=== PATIENT | female | born 1950 | race Caucasian/White ===

== ENCOUNTER 2017-11-18 01:53 | Emergency (ER) | payer MEDICARE, BC, SELFPAY ==
[2017-11-18 01:55] VITALS: BP 168/78; PULSE 83; RESP 16; TEMP 36.8; O2SAT 99; BMI 35.8
[2017-11-18] MEDS: HYDROmorphone 1 MG/ML Syringe IV (02:34)
--- NOTE | 2017-11-18 03:39 | ED.DCSUM_ITS ---
- ER Visit Summary Date of Service: 11/18/17 Chief Complaint: Cat bite History of Present Illness: The patient is a [address] Vila and Dr. Rausch. She reports that yesterday she was bit on the left wrist by her indoor cat that has had all of his shots. She reports she has a throbbing pain is 10 out of 10 at worst and 9 out of 10 currently. Is worsened by movement and relieved by rest. She denies any paresthesias distally. Physical Examination: Vitals: Stable. Afebrile. General: Well-nourished and well-developed. Head: Normocephalic atraumatic. Neck: Supple, no lymphadenopathy. No JVD. Nontender. Cardiovascular: Regular rate and rhythm. No murmurs. Respiratory: No respiratory distress. Clear to auscultation bilaterally. Abdominal: Soft, nontender, nondistended, normal bowel sounds. No guarding, rebound, or peritoneal signs. Back: Nontender. Extremities: Soft tissue swelling to the back of her right wrist with puncture wounds in the center of it. There is minimal erythema. There is no lymphangitic spread. She is neurovascularly intact distal to this. Skin: Normal color, no rash. Neurologic: Alert and oriented ?3. Cranial nerves II through XII are intact. Normal strength and sensation. Psych: Normal affect. Emergency Department Course and Treatment: Patient had an IV placed. She was given Dilaudid and Unasyn IV. She is resting comfortably. Treatment Plan: Patient will be discharged with [place], Augmentin, and Bactroban ointment. Instructed follow-up Dr. Rausch in 2 days for a wound check. Return to the emergency department for any worsening symptoms. Disposition: To home in improved and stable condition. Impression: 1. Cat bite left wrist. This note was generated with [employer] dictation software. It may contain incorrect words, spelling, and punctuation that were not noted in review of the chart prior to signing ED Disposition - Plan for ED Patient: Disposition: Home or Assisted Living Chief Complaint: Bite Instructions: ED Bite Cat Prescriptions: Hydrocodone Bitart/Apap 5-325 [[place] 5/325] 1 - 2 tablet PO Q4H PRN PRN 5 Days # 20 tablet PRN Reason: Pain Amox/Clavulanate Tablet [Augmentin Tablet] 875 mg PO Q12H #20 tablet Mupirocin [Bactroban] 1 applic TOPICAL TID #1 tube Referrals: Gustavo Rausch MD [STAFF PHYSICIAN] - 2 Days for wound check
[2017-11-18] MEDS: HYDROcodone Bitartrate/Apap 5/325 Tablet PO (03:47)
[2017-11-18 03:48] VITALS: BP 135/76; PULSE 66; RESP 17; O2SAT 94
== END 2017-11-18 03:54 | disposition home or self-care (01) ==
PROVIDERS: Emergency Provider Emergency Medicine; Family Provider Internal Medicine; PCP Internal Medicine
DX: S60.872A Other superficial bite of left wrist, initial encounter (principal); W55.01XA Bitten by cat, initial encounter; Y93.9 Activity, unspecified; Y92.009 Unspecified place in unspecified non-institutional (private) residence as the place of occurrence of the external cause; I10 Essential (primary) hypertension; K21.9 Gastro-esophageal reflux disease without esophagitis; Z86.14 Personal history of Methicillin resistant Staphylococcus aureus infection; Z79.82 Long term (current) use of aspirin; Z79.899 Other long term (current) drug therapy
CPT/HCPCS: 96365; 96375; 99284; J7050; J0295

== ENCOUNTER 2023-01-15 11:18 | Inpatient (IN) | payer MEDICARE, BC, SELFPAY ==
[2023-01-15] VITALS (8 sets, daily range): BP systolic 136–160; BP diastolic 59–79; PULSE 59–63; RESP 14–18; TEMP 36.1–36.8; O2SAT 96–97; BMI 38.7; BMI 38.5
--- NOTE | 2023-01-15 11:29 | EKG12_ITS ---
Test Reason : WEAKNESS Blood Pressure : / mmHG Vent. Rate : 061 BPM Atrial Rate : 061 BPM P-R Int : 176 ms QRS Dur : 094 ms QT Int : 440 ms P-R-T Axes : 078 024 037 degrees QTc Int : 442 ms Normal sinus rhythm Normal ECG Confirmed by HARESH EGAN, KARON ([id number]), science editor MYNOR SCALES ([id number]) on 01/19/2023 2:27:21 PM Referred By: Confirmed By:AMY HUTSON MD
--- NOTE | 2023-01-15 11:30 | EX.ED.DYSGE1 ---
HPI <SHAWNA Santoyo - Last Filed: 01/15/23 13:32> History of Present Illness Chief Complaint: Weakness Narrative Narrative: Patient is a 72-year-old female with history of chronic kidney disease, rheumatoid arthritis, hypertension, diabetes, history of osteomyelitis presents to the emergency department with 1 week of generalized cough, fatigue, decreased appetite. Patient did see her PCP twice for this, 1 week ago, the patient was placed on Robitussin with codeine as well as cephalexin. Patient was seen yesterday, secondary to not getting better, patient then was placed on doxycycline, she is only been on 2 days of this. Patient today has been feeling more unsteady on her feet, she feels generally dehydrated, generally not well. She denies any fevers or chills. She did take a COVID-19 test that was negative. PFSH <SHAWNA Santoyo - Last Filed: 01/15/23 13:32> [facility] [place] Medical History (Updated 01/15/23 @ 14:58 by Caridad Villalobos) Diabetes FH: total knee replacement Hypertension Kidney failure Neuropathy Rheumatoid arthritis Home Medications aspirin 81 mg chewable tablet 81 mg PO DAILY heart 11/18/17 [History Last Taken 01/15/23] atenolol 25 mg tablet 25 mg PO DAILY blood pressure 11/18/17 [History Last Taken 01/15/23] hydrochlorothiazide 25 mg tablet 25 mg PO DAILY blood pressure 11/18/17 [History Last Taken 01/15/23] pantoprazole 20 mg tablet,delayed release 40 mg PO BID stomach 11/18/17 [History Last Taken 01/15/23] potassium chloride 10 mEq capsule,extended release 10 meq PO DAILY supplement 11/18/17 [History Last Taken 01/15/23] pregabalin 150 mg capsule (Lyrica) 150 mg PO BID neuropathy 11/18/17 [History Last Taken 01/15/23] spironolactone 25 mg tablet 25 mg PO DAILY water pill 11/18/17 [History Last Taken 01/15/23] albuterol sulfate 90 mcg/actuation aerosol inhaler 2 puff inhalation Q4H wheezing 01/15/23 [History Last Taken 01/15/23] cholecalciferol (vitamin D3) 25 mcg (1,000 unit) capsule 25 mcg PO DAILY supplement 01/15/23 [History Last Taken 01/15/23] codeine 10 mg-guaifenesin 100 mg/5 mL oral liquid 5 ml PO Q6H PRN Cough 01/15/23 [History Last Taken Unknown] cyanocobalamin (vitamin B-12) 1,000 mcg/mL injection syringe 1,000 mcg supplement 01/15/23 [History Last Taken 01/15/23] doxycycline hyclate 100 mg tablet 100 mg PO BID antibiotic 01/15/23 [History Last Taken 01/15/23] fluticasone propionate 50 mcg/actuation nasal spray,suspension (Flonase Allergy Relief) 2 spray intranasal DAILY allergies 01/15/23 [History Last Taken 01/15/23] guaifenesin 1,200 mg tablet, extended release 12 hr (Mucinex) 1,200 mg PO BID mucous 01/15/23 [History Last Taken 01/15/23] hydroxychloroquine 200 mg tablet 300 mg PO DAILY arthritis 01/15/23 [History Last Taken 01/15/23] infliximab 100 mg intravenous solution 100 mg IV Rheumatoid arthritis 01/15/23 [History Last Taken Unknown] metformin 500 mg tablet 500 mg PO BID diabetes 01/15/23 [History Last Taken 01/15/23] prednisone 10 mg tablet 40 mg PO DAILY steriod 01/15/23 [History Last Taken 01/14/23] Allergy/AdvReac Type Severity Reaction Status Date / Time clindamycin Allergy Rash Verified 01/15/23 11:19 Sulfa (Sulfonamide Allergy Hives Verified 01/15/23 11:19 Antibiotics) Surgical History (Updated 01/15/23 @ 14:58 by Caridad Villalobos) History of neck surgery Social History (Updated 01/15/23 @ 14:58 by Caridad Villalobos) household members: spouse Smoking Status: Never smoker ROS <SHAWNA Santoyo - Last Filed: 01/15/23 13:32> [facility] ED ROS Narrative Constitutional: Negative for fever, chills, weight loss. Eyes: Negative for vision loss, vision change, double vision ENT: Negative for any sore throat, ear pain, congestion Cardiovascular: Negative for any chest pain, tightness, palpitations Respiratory: Negative for any hemoptysis, dyspnea on exertion, orthopnea. Positive for cough, sputum production, dyspnea Gastrointestinal: Negative for any abdominal pain, nausea, vomiting, diarrhea, constipation, blood in stool, blood in vomit : Negative for any urinary frequency, dysuria, retention, blood in urine Muscle skeletal: Negative for any muscle joint pain, stiffness, arthralgias, neck pain, back pain. Positive generalized body aches Neurological: Negative for any headache, syncope, numbness or tingling, dizziness Skin: Negative for any rashes, lumps, itching, abrasions, lacerations Psychiatric: Negative for any depression, anxiety, stress, suicidal ideation, homicidal ideation Hematologic: Negative for any easy bruising, excessive bruising, easy bleeding Allergies: Negative for any eczema, hives, rash EXAM <SHAWNA Santoyo - Last Filed: 01/15/23 13:32> Physical Exam Narrative Exam Narrative: Vital signs reviewed. Vital signs stable, patient appears generally well patient is acting appropriate. HEET: Head normocephalic atraumatic, TMs clear bilaterally. Posterior pharynx is clear, dry mucous membranes. Nares clear bilaterally. Neck: Supple with no lymphadenopathy or tenderness. No signs of meningismus, negative jolt sign. Cardiac: Regular rate and rhythm no murmurs gallops or rubs, equal peripheral pulses bilaterally. Respiratory: Lungs clear to auscultation bilaterally. No chest tenderness. Abdomen: Soft, nontender, nondistended. No abdominal bruit or pulsatile masses. No hepatosplenomegaly Extremities: No peripheral edema, no signs of gross trauma or deformity. Active full range of motion of all extremities. Neuro: Cranial nerves II through XII intact, no focal neurological deficits. Skin: Clean dry and intact with no rash, purpura, petechiae, vesicles or pustules. Backs/flank: No CVA tenderness, no midline spinal tenderness, no deformity. Psych: Normal mood and affect. No SI, HI or acute psychosis. Const Vital Signs: 01/15/23 11:19 01/15/23 11:48 01/15/23 13:40 Temperature 97 F L 97.8 F Temperature Source Temporal Oral Pulse Rate 62 63 Respiratory Rate 14 16 Respiratory Effort Normal Respiratory Pattern Normal Blood Pressure 136/60 H 160/62 H Blood Pressure Mean 85 94 Pulse Ox 96 97 Oxygen Delivery Method Room Air Room Air Positive well nourished and well developed General Appearance ED: well developed <Dr. Gustavo Cantu MD - Last Filed: 01/15/23 16:59> Physical Exam Const Vital Signs: 01/15/23 11:19 01/15/23 11:48 01/15/23 13:40 Temperature 97 F L 97.8 F Temperature Source Temporal Oral Pulse Rate 62 63 Respiratory Rate 14 16 Respiratory Effort Normal Respiratory Pattern Normal Blood Pressure 136/60 H 160/62 H Blood Pressure Mean 85 94 Pulse Ox 96 97 Oxygen Delivery Method Room Air Room Air [facility] <SHAWNA Santoyo - Last Filed: 01/15/23 13:32> MDM Lab Data Labs: Laboratory Results - last 24 hr 01/15/23 01/15/23 01/15/23 11:35 11:35 11:35 WBC 7.1 RBC 4.32 Hgb 12.0 Hct 34.0 L MCV 78.7 L MCH 27.8 MCHC 35.3 RDW Std Deviation 37.1 RDW Coeff of Kelsy 13.1 Plt Count 291 MPV 9.8 Immature Gran % (Auto) 0.600 Neut % (Auto) 58.6 Lymph % (Auto) 27.2 Armstrong % (Auto) 12.9 H Eos % (Auto) 0.6 Baso % (Auto) 0.1 Absolute Neuts (auto) 4.2 Absolute Lymphs (auto) 1.94 Nucleated RBC % 0 Sodium 115 L* Potassium 3.5 Chloride 76 L Carbon Dioxide 26.0 Anion Gap 13 BUN 19 H Creatinine 1.51 H Estim Creat Clear Calc 31.06 Est GFR (MDRD) Af Amer 43 L Est GFR (MDRD) Non-Af 36 L BUN/Creatinine Ratio 12.6 Glucose 101 Calcium 9.5 B-Natriuretic Peptide 43.5 Radiography Diagnostic Testing: Clinical Impression(s) from Imaging Studies Chest X-Ray 01/15/23 11:55 IMPRESSION: No acute abnormality is seen. Electronically Signed: Lino Gonzales MD at 12:32 EDT , EKG Normal sinus rhythm: Attestation: I personally reviewed and interpreted this EKG as follows: Interpretation: Sinus Rhythm Comments: Sinus rhythm, rate of 61 bpm, PA interval 176 ms, QRS duration 94 ms, no acute ST elevation, no acute infarct noted Treatment and Re-Evaluation :: All radiologic examinations were read, reviewed by the emergency department attending. From these reads, a plan of care will be put in place. Patient appears in no respiratory distress, patient's vital signs are stable. Patient presents to the emergency department for 1 week of generalized upper respiratory tract infectious illness, patient is having difficulty eating and drinking, patient states over the last 2 days she has been more weak, very unsteady on her feet. Patient did receive a two-view chest x-ray, this showed no acute process, no evidence of any pneumonia. Patient's laboratory values showed a normal CBC however patient's chemistries showed hyponatremia with a sodium of 115. This is secondary to the patient not eating or drinking, this also would explain the patient's difficulty ambulating, excessive weakness. Patient denies any seizure-like activity. Patient's creatinine was 1.5, this is slightly elevated. Patient was given 1 L of normal saline, and a second liter at 150 an hour. Secondary to his hyponatremia, urinalysis, urine osmolality was ordered. The patient will need to be admitted to the hospital. I spoke with the hospitalist, she will be admitted to PCU, full admission. Patient and the patient's who is also physician was made aware, are in agreement, and all questions answered. At this time there is no evidence suspect any pneumonia, septicemia, anemia. <Dr. Gustavo Cantu MD - Last Filed: 01/15/23 16:59> [facility] Narrative Medical decision making narrative: Patient's blood work shows relatively normal CBC. However, her electrolytes showed elevated creatinine and significantly decreased sodium at 115. Her BNP was normal at 435. With her generalized weakness, ongoing symptoms, and very low sodium she will need to come in the hospital and the case is discussed with hospitalist. Lab Data Attestation: I reviewed the patient's lab results. Labs: Laboratory Results - last 24 hr 01/15/23 01/15/23 01/15/23 11:35 11:35 11:35 WBC 7.1 RBC 4.32 Hgb 12.0 Hct 34.0 L MCV 78.7 L MCH 27.8 MCHC 35.3 RDW Std Deviation 37.1 RDW Coeff of Kelsy 13.1 Plt Count 291 MPV 9.8 Immature Gran % (Auto) 0.600 Neut % (Auto) 58.6 Lymph % (Auto) 27.2 Armstrong % (Auto) 12.9 H Eos % (Auto) 0.6 Baso % (Auto) 0.1 Absolute Neuts (auto) 4.2 Absolute Lymphs (auto) 1.94 Nucleated RBC % 0 Sodium 115 L* Potassium 3.5 Chloride 76 L Carbon Dioxide 26.0 Anion Gap 13 BUN 19 H Creatinine 1.51 H Estim Creat Clear Calc 31.06 Est GFR (MDRD) Af Amer 43 L Est GFR (MDRD) Non-Af 36 L BUN/Creatinine Ratio 12.6 Glucose 101 Calcium 9.5 B-Natriuretic Peptide 43.5 Radiography Diagnostic Testing: Clinical Impression(s) from Imaging Studies Chest X-Ray 01/15/23 11:55 IMPRESSION: No acute abnormality is seen. Electronically Signed: Lino Gonzales MD at 12:32 EDT , Management Discussion w/another healthcare provider: Hospitalist Treatment and Re-Evaluation Comments:: I have personally performed a face to face assessment of the patient and have reviewed the JENNIFER Note. I performed a substantive portion of the visit including all aspects of the following. My encinas findings include: History: Patient started with what she describes as a viral type syndrome a week ago. She felt achy. She had a low-grade fever in the mid 100s. She had coughing and some wheezing. She has no history of lung disease or smoking. She saw her physician was placed on Keflex and Medrol Dosepak and an inhaler. She states she is still coughing but not bringing up sputum. She is also complaining that her appetite has just been extremely low this week. She is trying to force fluids in. She is not actually nauseated but she has no interest in food or drink. She is concerned about dehydration because she has a history of some kidney dysfunction related to antibiotic treatment many years ago. She was now just switched to prednisone. Wheezing is better. Not having chest pain. No abdominal pain. No diarrhea. Exam: Patient awake alert no acute distress. Mildly dry mucous membranes. Her lungs sound totally clear to me at this time. And saturations are normal at 96% on room air. Heart rate is slow at 60. But of note she is on a beta-rik which might keep her heart rate low even if she is dehydrated. Abdomen is benign. No peripheral edema. Medical Decision Making: Patient will have blood work done along with some billable viral studies and chest x-ray. Discharge Plan Dx/Rx/DC Orders Clinical Impression: Acute hyponatremia, URI (upper respiratory infection), Acute dehydration, Chronic renal insufficiency Disposition Disposition: Acute Care Hospital [facility] Discharge Date/Time: 01/15/23 14:24
[2023-01-15] MEDS: 0.9% Normal Saline 1,000 ML 999 ML IV (11:44)
[2023-01-15 11:50] LABS: Absolute Lymphocyte Count 1.94 X10^3/uL (0.83-4.51); Absolute Neutrophil Count 4.2 X10^3/uL (2.0-7.7); Basophil# 0.01 X10^3/uL; Basophil% 0.1 % (0-1); Eosinophil# 0.04 X10^3/uL; Eosinophils% 0.6 % (0-5); Lymphocyte # 1.94 X10^3/ul (0.83-4.51); Lymphocyte % 27.2 % (19-41); Mean Corp Hgb Conc 35.3 g/dL (32-36); Mean Corpuscular Hgb 27.8 pg (27.0-32.0); Mean Corpuscular Volume 78.7 fL (81-99); Mean Platelet Vol. 9.8 fl (6.2-12.0); Monocyte# 0.92 X10^3/uL; Monocyte% 12.9 % (0-10); NRBC Flagged by Analyzer 0 % (0-5); Neutrophil # 4.18 X10^3/uL (2.7-7.7); Neutrophil % 58.6 % (47-70); Platelet Count 291 K/mm3 (150-450); RBC Distribution Width CV 13.1 % (11.6-14.6); RBC Distribution Width SD 37.1 fl (35.1-43.9); Red Blood Count 4.32 M/mm3 (4.2-5.4); White Blood Count 7.1 K/mm3 (4.4-11.0)
--- NOTE | 2023-01-15 11:55 | RAD_ITS ---
STUDY: X-RAY CHEST REASON FOR EXAM: Female, 72 years old. One-week history of weakness and cough. TECHNIQUE: PA and lateral views of the chest. COMPARISON: Comparison is made with prior study June 24, 2012. FINDINGS: EKG electrodes are seen. The lungs are clear and expanded. There is no demonstrated pleural abnormality. Normal size heart. Normal mediastinum and mali. Normal visualized pulmonary arteries. There is atherosclerotic calcification of the aortic arch with tortuosity. Normal visualized thoracic spine. Prior fusion in the lower cervical spine. There is no demonstrated abnormality of the visualized soft tissue structures of the upper abdomen. RAD/Chest PA and Lateral IMPRESSION: No acute abnormality is seen. Electronically Signed: Lino Gonzales MD at 12:32 EDT ,
[2023-01-15 12:00] LABS: BNP,B-Type NATRIURETIC PEPTIDE 43.5 pg/mL (0-100)
[2023-01-15 12:21] LABS: Anion Gap 13 (5-15); BUN 19 mg/dL (7-18); BUN/Creat Ratio 12.6 RATIO (10-20); Calcium,Total 9.5 mg/dL (8.5-10.1); Chloride 76 mmol/L (98-107); Creatinine, Serum 1.51 mg/dL (0.55-1.02); EST Glomerular Filtration Rate 36 mL/min (>60); Est Glom Filt Rate - Afr Amer 43 mL/min (>60); Estimated Creatinine Clearance 31.06 ml/min; Glucose 101 mg/dL (74-106); Potassium 3.5 mmol/L (3.5-5.1); Sodium Level 115 mmol/L (136-145)
[2023-01-15] MEDS: 0.9% Normal Saline 1,000 ML 150 ML IV (13:29)
--- NOTE | 2023-01-15 13:39 | NURSING ---
PCU ABDULLAHI HYPONATREMIA, DEHYDRATION, RENAL INSUFFICIENCY
--- NOTE | 2023-01-15 14:12 | PCM.HP.STD ---
HPI - General General Date of Admission: 01/15/23 Date of Service: 01/15/23 Chief Complaint: Generalized weakness, fatigue for 1 week, viral-like syndrome for 1 week. HPI Narrative CÉSAR OLMSTEAD, is a 72 F came to ER with 1 week history of generalized weakness, fatigue loss of appetite dry cough for 1 week. She was started on Keflex, Mucinex, Medrol Dosepak and albuterol inhaler a week ago which she completed yesterday and was started on Keflex and prednisone 40 mg daily. Patient states she took 1 dose of Keflex and prednisone. Patient had fever and sore throat about 1 week ago but recently she has cough, states thick mucus in the back of throat, loss of appetite. She denies headache. She feels generalized weakness and fatigue. Today she felt very weak and unsteady on her feet dehydrated but no loss of consciousness, fall, seizure or altered mental status. She denies vomiting, diarrhea or hypovolemia. She has been on HCTZ 25 mg daily for long time probably since 2018. In ED, her sodium was found 115. She had 1 L of normal saline bolus and getting 150 mill per hour. Her urine output has also decreased in last 3 to 4 days. She has a history of CKD stage IIIb for many years after she had ceftaroline for osteomyelitis of her foot. She does not follow medical support specialist. [facility] Medical History Hypertension Kidney failure Rheumatoid arthritis Home Medications aspirin 81 mg chewable tablet 81 mg PO DAILY 11/18/17 [History Last Taken Unknown] atenolol 25 mg tablet 10 mg PO DAILY 11/18/17 [History Last Taken Unknown] hydrochlorothiazide 25 mg tablet 25 mg PO DAILY 11/18/17 [History Last Taken Unknown] pantoprazole 20 mg tablet,delayed release 20 mg PO BID 11/18/17 [History Last Taken Unknown] potassium chloride 10 mEq capsule,extended release 10 meq PO DAILY 11/18/17 [History Last Taken Unknown] pregabalin 150 mg capsule (Lyrica) 150 mg PO BID 11/18/17 [History Last Taken Unknown] spironolactone 25 mg tablet 25 mg PO DAILY 11/18/17 [History Last Taken Unknown] cefdinir 300 mg capsule 300 mg PO BID 01/15/23 [History Last Taken Unknown] cholecalciferol (vitamin D3) 25 mcg (1,000 unit) capsule 25 mcg PO DAILY 01/15/23 [History Last Taken Unknown] codeine 10 mg-guaifenesin 100 mg/5 mL oral liquid 5 ml PO Q6H PRN Cough 01/15/23 [History Last Taken Unknown] cyanocobalamin (vitamin B-12) 1,000 mcg/mL injection syringe 1,000 mcg 01/15/23 [History Last Taken Unknown] doxycycline hyclate 100 mg tablet 100 mg PO BID 01/15/23 [History Last Taken Unknown] fluticasone propionate 50 mcg/actuation nasal spray,suspension (Flonase Allergy Relief) 2 spray intranasal DAILY 01/15/23 [History Last Taken Unknown] guaifenesin 1,200 mg tablet, extended release 12 hr (Mucinex) 1,200 mg PO BID 01/15/23 [History Last Taken Unknown] hydroxychloroquine 200 mg tablet 200 mg PO DAILY 01/15/23 [History Last Taken Unknown] infliximab 100 mg intravenous solution 100 mg IV 01/15/23 [History Last Taken Unknown] metformin 500 mg tablet 500 mg PO BID 01/15/23 [History Last Taken Unknown] methylprednisolone 4 mg tablets in a dose pack mg 01/15/23 [History Last Taken Unknown] Allergy/AdvReac Type Severity Reaction Status Date / Time clindamycin Allergy Rash Verified 01/15/23 11:19 Sulfa (Sulfonamide Allergy Hives Verified 01/15/23 11:19 Antibiotics) Social History Smoking Status: Never smoker ROS ROS Narrative Constitutional: Reports fatigue and weakness. No fever HEENT: Reports systems reviewed and no addt'l complaints, except as documented Respiratory/Chest: Denies chest pain, shortness of breath at rest or with exertion CVS: Denies coronary artery disease, heart failure or A-fib. No anginal-like pain. Gastrointestinal: Denies coffee ground emesis, hematemesis or vomiting Nephrology: Chronic kidney disease history and oliguria as described in HPI. No renal angle pain. Genitourinary: Denies burning urination or new urinary tract symptoms Musculoskeletal: Reports joint pain and limited range of motion Neurologic: Denies seizure-like activity. No acute change in mental status. skin: No ulcer. No rash Endocrinology: Reports systems reviewed and no addt'l complaints, except as documented Hematologic/Lymphatic: Reports systems reviewed and no addt'l complaints, except as documented Rest 14 ROS are negative except as mentioned in HPI Vital Signs Vital Signs Vital Signs: 01/15/23 11:19 01/15/23 11:48 01/15/23 13:40 Temperature 97 F L 97.8 F Temperature Source Temporal Oral Pulse Rate 62 63 Respiratory Rate 14 16 Respiratory Effort Normal Respiratory Pattern Normal Blood Pressure 136/60 H 160/62 H Blood Pressure Mean 85 94 Pulse Ox 96 97 Oxygen Delivery Method Room Air Room Air Weight Weight: 240 lb 1.334 oz Body Mass Index (BMI) 38.7 Physical Exam Narrative General: Alert, Oriented x3, Cooperative HEENT: Atraumatic, PERRLA, EOMI, Normocephalic Oral: Oral mucosa dry. No Gingival or Mucosal Lesions/ Ulcerations. No posterior pharyngeal wall infiltrate or exudate seen. Neck: Supple, No JVD, Negative Carotid Bruits Lungs: Air entry diminished in bilateral lung bases. No crepitation/rhonchi Cardiovascular: Regular rate, Regular Rhythm, Normal S1, Normal S2, No murmurs Abdomen: Bowel Sounds Present, Soft, Non Tender, Non-Distended : Mild oliguria, thick dark-colored urine. No hematuria. No renal angle tenderness. No suprapubic tenderness. Extremities: No edema, Capillary Refill Less than 3 Seconds Skin: No rashes, No breakdown Musculoskeletal: No Tenderness to Palpation of Joints or Extremities Neurological: Cranial nerves II-XII grossly intact, DTR 2+/4 and Symmetrical, Neuro grossly intact Psych/Mental Status: Flat affect. Results Lab / Micro Data Result Diagrams: 01/15/23 11:35 01/15/23 11:35 Labs: Laboratory Results - last 24 hr 01/15/23 11:35: WBC 7.1, RBC 4.32, Hgb 12.0, Hct 34.0 L, MCV 78.7 L, MCH 27.8, MCHC 35.3, RDW Std Deviation 37.1, RDW Coeff of Kelsy 13.1, Plt Count 291, MPV 9.8, Immature Gran % (Auto) 0.600, Neut % (Auto) 58.6, Lymph % (Auto) 27.2, [place] % (Auto) 12.9 H, Eos % (Auto) 0.6, Baso % (Auto) 0.1, Absolute Neuts (auto) 4.2, Absolute Lymphs (auto) 1.94, Nucleated RBC % 0 01/15/23 11:35: Sodium 115 L*, Potassium 3.5, Chloride 76 L, Carbon Dioxide 26.0, Anion Gap 13, BUN 19 H, Creatinine 1.51 H, Estim Creat Clear Calc 31.06, Est GFR (MDRD) Af Amer 43 L, Est GFR (MDRD) Non-Af 36 L, BUN/Creatinine Ratio 12.6, Glucose 101, Calcium 9.5 01/15/23 11:35: B-Natriuretic Peptide 43.5 Micro: Microbiology 01/15/23 11:45 Nasal Secretion SARS-CoV-2 & FLU Antigen (Rapid) - Final Radiology Impression Chest X-Ray 01/15/23 11:55 IMPRESSION: No acute abnormality is seen. Electronically Signed: Lino Gonzales MD at 12:32 EDT , Assessment & Plan Assessment/Plan (1) Chronic hyponatremia: (2) Stage 3b chronic kidney disease (CKD): PLAN: Plan This is a 72-year-old female is being admitted for viral-like symptoms for 1 week along with severe hyponatremia. 1. Severe hypotonic isovolemic hyponatremia probably subacute/chronic: Patient symptoms are about 7 to 8 days therefore hyponatremia is subacute/chronic. Patient does not have indication for hypertonic saline like seizure altered mental status or change in behavior or acute hyponatremia therefore agree with normal saline. Normal saline rate decreased to 75 mill per hour. Serum sodium every 4 hours first now for first 24 hours. Medical Facilities Section Director consulted. At the most likely cause for hyponatremia might be steroid methylprednisolone for 1 week leading to SIADH. UA, urine electrolytes, urine protein creatinine ratio, serum and urine osmolality, TSH and serum cortisol ordered. 2. KADY on CKD stage IIIb: Patient baseline creatinine runs around 1.0-1.2. She has a history of CKD stage IIIb for many years after she had ceftaroline for osteomyelitis of her foot. Patient admitted with creatinine 1.51. Exact etiology of KADY unclear possible viral or Streptococcus. Strep throat and urine for strep pneumonia ordered. Continue IV fluid. Strict intake and output. 3. Flulike viral-like symptoms: Patient had about 8 days course of Keflex, methylprednisolone and then started on doxycycline and prednisone probably cefdinir. Hold off any further antibiotic. ESR and CRP ordered. Respiratory panel and COVID-19 PCR ordered. 4. Hypertension: Hold HCTZ and spironolactone as it might be because of hyponatremia. Continue atenolol. 5. Other comorbidities include rheumatoid arthritis, morbid obesity, GERD: BMI of 38.8 kg/m? consistent with morbid obesity. Patient on infliximab hold it. Continue PPI. VTE prophylaxis, high risk: Enoxaparin 40 mg subcu daily. Living will/advanced directive/end of life care: Patient does have living will or advanced directive. After discussion of benefits/risks procedures involved with full code, DNR CC arrest and DNR CC, the patient and her opted for full code. Patient does want artificial life support including intubation, tube feed, ventilator and/chest compression, central venous catheter, vasopressor and DC shock if needed but does not want to prolong her life if causes are terminal or irreversible Total time spent in [id number] encounter in discussion of advanced directive 17 minutes. Charges/Coding Visit Charges Inpatient E&M: 85331 Init Hosp L3 Procedures Hospitalists Procedures: 19091 Advncd Care Plan 30 Min
[2023-01-15 14:42] LABS: Phosphorus 3.2 mg/dL (2.5-4.9); Sodium Level 116 mmol/L (136-145)
[2023-01-15 15:07] LABS: CRP, High Sensitivity Cardiac 0.89 mg/L
[2023-01-15] MEDS: 0.9% Normal Saline 1,000 ML 75 ML IV (15:31)
[2023-01-15] MEDS: Potassium Chloride Oral Tablet 20 MEQ 40 MEQ PO (16:17)
[2023-01-15 16:29] LABS: Bacteria 0 SEEN /hpf (None Seen); Mucous, Urine 0 SEEN /hpf (<or=2+); Red Blood Cells-Urine 0 SEEN /hpf (0-5); Squamous Epithelial Cells - UA 0 SEEN /hpf (5-10); White Blood Cells 0 SEEN /hpf (0-5)
[2023-01-15 16:45] LABS: Color, Urine Yellow (Yellow); Glucose, Dipstick Normal (Normal); Ketone-Dipstick 5 mg/dl (Negative); Leukocyte Esterase-Dipstick Negative /ul (Negative); Nitrite-Dipstick Negative (Negative); Occult Blood-Urine Negative /ul (Negative); Protein-Dipstick Negative (Negative); Urine Bilirubin Dipstick Negative (Negative); Urine Clarity Clear (Clear); Urine Urobilinogen Normal (Normal); Urine pH 6.5 (5.0 - 8.0)
[2023-01-15 16:46] LABS: Protein, Urine (Random) 8.3 mg/dL (<11.9); Protein:Creat Ratio 280 mg/g CRE (0-200); Urine Chloride 73 mmol/L (Not Establ.); Urine Sodium 60 mmol/L (Not Establ.)
[2023-01-15] MEDS: Pregabalin 75 MG Capsule 150 MG PO (18:22)
[2023-01-15 18:23] LABS: Osmolality, Urine 278 mOsm/KG
[2023-01-15 18:25] LABS: Erythrocyte Sedimentation Rate 2 mm/hr (0-30)
[2023-01-15 18:41] LABS: Sodium Level 117 mmol/L (136-145)
[2023-01-15 18:42] LABS: Osmolality, Serum 247 mOsm/KG (280-301)
[2023-01-15] MEDS: Ipratropium/Albuterol Sulfate 3 ML AMPUL.NEB INHALATION ×2 (18:52→23:15)
[2023-01-15] MEDS: Senna/Docusate Sodium 1 Tablet 2 TABLET PO (20:41)
[2023-01-15] MEDS: guaiFENesin/D-Methorphan TAB.SR.12H 2 TABLET PO (20:41)
--- NOTE | 2023-01-15 21:40 | CON.PCM.RE_ITS ---
Assessment & Plan Assessment/Plan (1) Acute hyponatremia: PLAN: presented with severe hyponatremia. significantly lower from baseline. has been sick for several days. was on thiazide and aldactone for a long time. has been taking it. ? volume depletion related hypovolemic hyponatremia. will continue low dose fluids for now. asymptomatic from hyponatremia. HPI Consult Data Date of Consult: 01/15/23 HPI Narrative Reason for Consultation: Hyponatremia HPI Narrative: CÉSAR OLMSTEAD, is a 72 F who presents to the hospital with generalized weakness, nausea, poor appetite for several days. she was diagnosed with URI and treated for bronchitis. symptoms worsened hence she presented to ER. found to have severe hyponatremia. denies drinking large amounts of water. says poor appetite, hardly ate/drank anything. was on thiazide and aldactone for a while, has been t aking it. took thiazide today am as well. no urinary complaints. [facility] Medical History (Updated 01/15/23 @ 14:58 by Caridad Villalobos) Diabetes FH: total knee replacement Hypertension Kidney failure Neuropathy Rheumatoid arthritis Home Medications aspirin 81 mg chewable tablet 81 mg PO DAILY heart 11/18/17 [History Last Taken 01/15/23] atenolol 25 mg tablet 25 mg PO DAILY blood pressure 11/18/17 [History Last Taken 01/15/23] hydrochlorothiazide 25 mg tablet 25 mg PO DAILY blood pressure 11/18/17 [History Last Taken 01/15/23] pantoprazole 20 mg tablet,delayed release 40 mg PO BID stomach 11/18/17 [History Last Taken 01/15/23] potassium chloride 10 mEq capsule,extended release 10 meq PO DAILY supplement 11/18/17 [History Last Taken 01/15/23] pregabalin 150 mg capsule (Lyrica) 150 mg PO BID neuropathy 11/18/17 [History Last Taken 01/15/23] spironolactone 25 mg tablet 25 mg PO DAILY water pill 11/18/17 [History Last Taken 01/15/23] albuterol sulfate 90 mcg/actuation aerosol inhaler 2 puff inhalation Q4H wheezing 01/15/23 [History Last Taken 01/15/23] cholecalciferol (vitamin D3) 25 mcg (1,000 unit) capsule 25 mcg PO DAILY supplement 01/15/23 [History Last Taken 01/15/23] codeine 10 mg-guaifenesin 100 mg/5 mL oral liquid 5 ml PO Q6H PRN Cough 01/15/23 [History Last Taken Unknown] cyanocobalamin (vitamin B-12) 1,000 mcg/mL injection syringe 1,000 mcg supplement 01/15/23 [History Last Taken 01/15/23] doxycycline hyclate 100 mg tablet 100 mg PO BID antibiotic 01/15/23 [History Last Taken 01/15/23] fluticasone propionate 50 mcg/actuation nasal spray,suspension (Flonase Allergy Relief) 2 spray intranasal DAILY allergies 01/15/23 [History Last Taken 01/15/23] guaifenesin 1,200 mg tablet, extended release 12 hr (Mucinex) 1,200 mg PO BID mucous 01/15/23 [History Last Taken 01/15/23] hydroxychloroquine 200 mg tablet 300 mg PO DAILY arthritis 01/15/23 [History Last Taken 01/15/23] infliximab 100 mg intravenous solution 100 mg IV Rheumatoid arthritis 01/15/23 [History Last Taken Unknown] metformin 500 mg tablet 500 mg PO BID diabetes 01/15/23 [History Last Taken 01/15/23] prednisone 10 mg tablet 40 mg PO DAILY steriod 01/15/23 [History Last Taken 01/14/23] Allergy/AdvReac Type Severity Reaction Status Date / Time clindamycin Allergy Rash Verified 01/15/23 11:19 Sulfa (Sulfonamide Allergy Hives Verified 01/15/23 11:19 Antibiotics) Surgical History (Updated 01/15/23 @ 14:58 by Caridad Villalobos) History of neck surgery Social History (Updated 01/15/23 @ 14:58 by Caridad Villalobos) household members: spouse Smoking Status: Never smoker ROS ROS Narrative negative except above Physical Exam Narrative Alert awake oriented x 3 no obvious distress no pallor no icterus no JVD s1s2 no murmurs lungs clear abdomen soft no organomegaly no edema no cyanosis Lab / Micro Data Result Diagrams: 01/15/23 11:35 01/15/23 18:07 Labs: Laboratory Results - last 24 hr 01/15/23 11:35: WBC 7.1, RBC 4.32, Hgb 12.0, Hct 34.0 L, MCV 78.7 L, MCH 27.8, MCHC 35.3, RDW Std Deviation 37.1, RDW Coeff of Kelsy 13.1, Plt Count 291, MPV 9.8, Immature Gran % (Auto) 0.600, Neut % (Auto) 58.6, Lymph % (Auto) 27.2, [place] % (Auto) 12.9 H, Eos % (Auto) 0.6, Baso % (Auto) 0.1, Absolute Neuts (auto) 4.2, Absolute Lymphs (auto) 1.94, Nucleated RBC % 0 01/15/23 11:35: Sodium 115 L*, Potassium 3.5, Chloride 76 L, Carbon Dioxide 26.0, Anion Gap 13, BUN 19 H, Creatinine 1.51 H, Estim Creat Clear Calc 31.06, Est GFR (MDRD) Af Amer 43 L, Est GFR (MDRD) Non-Af 36 L, BUN/Creatinine Ratio 12.6, Glucose 101, Calcium 9.5 01/15/23 11:35: B-Natriuretic Peptide 43.5 01/15/23 14:18: Sodium 116 L*, Phosphorus 3.2, Magnesium 2.0 01/15/23 14:18: C-React Prot High Sens 0.89 01/15/23 15:20: COVID-19 (TINA) Not Detected 01/15/23 16:00: Urine Color Yellow, Urine Clarity Clear, Urine pH 6.5, Ur Specific [place] 1.010, Urine Protein Negative, Urine Glucose (UA) Normal, Urine Ketones 5 H, Urine Occult Blood Negative, Urine Nitrite Negative, Urine Bilirubin Negative, Urine Urobilinogen Normal, Ur Leukocyte Esterase Negative, Urine RBC 0 SEEN, Urine WBC 0 SEEN, Ur Squamous Epith Cells 0 SEEN, Urine Bacteria 0 SEEN, Urine Mucus 0 SEEN 01/15/23 16:00: Urine Osmolality 278, U Random Total Protein 8.3, Ur Random Sodium 60, Urine Creatinine 29.60, Protein/Creatinin Ratio 280 H, Urine Potassium 24.0, Urine Chloride 73 01/15/23 16:00: Urine Creatinine 30.80 01/15/23 18:07: Sodium 117 L* 01/15/23 18:07: Serum Osmolality 247 L 01/15/23 18:07: ESR 2 Micro: Microbiology 01/15/23 15:20 Mucosa - Nasopharyngeal Respiratory Panel (PCR) - Final Rhinovirus 01/15/23 16:00 Urine, Clean Catch Streptococcus pneumoniae Antigen (M - Final 01/15/23 15:20 Interface Orders Group A Streptococcus Rapid Screen - Preliminary 01/15/23 11:45 Nasal Secretion SARS-CoV-2 & FLU Antigen (Rapid) - Final Radiology Impression Chest X-Ray 01/15/23 11:55 IMPRESSION: No acute abnormality is seen. Electronically Signed: Lino Gonzales MD at 12:32 EDT ,
[2023-01-15 23:05] LABS: Sodium Level 117 mmol/L (136-145)
[2023-01-16] VITALS (11 sets, daily range): BP systolic 125–157; BP diastolic 48–69; PULSE 57–68; RESP 16–20; TEMP 36.6–36.8; O2SAT 93–96; BMI 37.8
[2023-01-16] MEDS: guaiFENesin/Codeine 5 ML UDC PO ×4 (00:56→22:37)
[2023-01-16] MEDS: 0.9% Normal Saline 1,000 ML 100 ML IV ×3 (00:59→20:00)
[2023-01-16 05:55] LABS: Absolute Lymphocyte Count 2.04 X10^3/uL (0.83-4.51); Absolute Neutrophil Count 3.7 X10^3/uL (2.0-7.7); Basophil# 0.03 X10^3/uL; Basophil% 0.4 % (0-1); Eosinophil# 0.14 X10^3/uL; Hematocrit 33.1 % (37-47); Hemoglobin 11.7 g/dL (12.0-15.0); Lymphocyte # 2.04 X10^3/ul (0.83-4.51); Lymphocyte % 29.5 % (19-41); Mean Corp Hgb Conc 35.3 g/dL (32-36); Mean Corpuscular Hgb 28.7 pg (27.0-32.0); Mean Corpuscular Volume 81.1 fL (81-99); Monocyte# 0.94 X10^3/uL; Monocyte% 13.6 % (0-10); NRBC Flagged by Analyzer 0 % (0-5); Neutrophil # 3.73 X10^3/uL (2.7-7.7); Neutrophil % 54.1 % (47-70); Platelet Count 266 K/mm3 (150-450); RBC Distribution Width CV 13.4 % (11.6-14.6); RBC Distribution Width SD 38.9 fl (35.1-43.9); Red Blood Count 4.08 M/mm3 (4.2-5.4); White Blood Count 6.9 K/mm3 (4.4-11.0)
[2023-01-16] MEDS: Pregabalin 75 MG Capsule 150 MG PO ×2 (06:00→18:50)
[2023-01-16 06:39] LABS: Anion Gap 11 (5-15); BUN 18 mg/dL (7-18); BUN/Creat Ratio 14.9 RATIO (10-20); Calcium,Total 8.8 mg/dL (8.5-10.1); Chloride 82 mmol/L (98-107); Creatinine, Serum 1.21 mg/dL (0.55-1.02); EST Glomerular Filtration Rate 46 mL/min (>60); Est Glom Filt Rate - Afr Amer 56 mL/min (>60); Estimated Creatinine Clearance 38.76 ml/min; Glucose 86 mg/dL (74-106); Potassium 3.5 mmol/L (3.5-5.1); Sodium Level 117 mmol/L (136-145); Thyroid Stim Hormone (TSH) 1.72 uIU/mL (0.358-3.74)
[2023-01-16] MEDS: Ipratropium/Albuterol Sulfate 3 ML AMPUL.NEB INHALATION ×5 (06:54→23:34)
[2023-01-16] MEDS: Enoxaparin 30 MG/0.3 ML Syringe SC (10:18)
[2023-01-16] MEDS: Fluticasone 0.05% 1 SPRAY NASAL.SRY 2 SPRAY NASAL (10:18)
[2023-01-16] MEDS: Pantoprazole Sodium 40 MG Tablet PO (10:19)
[2023-01-16] MEDS: Aspirin 81 MG TAB.CHEW PO (10:19)
[2023-01-16] MEDS: Hydroxychloroquine 200 MG Tablet 300 MG PO (10:19)
[2023-01-16] MEDS: Senna/Docusate Sodium 1 Tablet 2 TABLET PO ×2 (10:19→20:00)
[2023-01-16] MEDS: Potassium Chloride Oral Tablet 10 MEQ PO (10:19)
[2023-01-16] MEDS: Atenolol 25 MG Tablet PO (10:19)
--- NOTE | 2023-01-16 10:30 | CASEMGMT ---
RN CM Face to Face with patient for initial transition planning/care coordination assessment. RN CM introduced self and role at [facility]. Patient lying in bed, alert and oriented, at bedside. Patient willing to participate in assessment and is able to answer all questions appropriately. Care providers, pharmacy, and demographics verified. Patient wishes to discharge home, denies need for home health at this time. Patient states she has no further needs or concerns at this time. CM to follow for discharge planning needs that may arise. PCP: Julito Specialists: MARIA EUGENIA Tobias RA Preferred Pharmacy: [facility] Insurance: Leanne CHAVEZ Prescription Benefit: yes Living Will/HPOA: yes, Jude Ortiz LNOK: self, Living Arrangements: Patient lives with in a 2 story home. Patient states she is independent and able to ambulate stairs. Transportation: self, DME/HHC: Patient states she has shower chair, raised toilet, and walker. No previous HHC or SNF Disposition Plan: Patient to discharge home with family support and follow-up plans in place. Victoria DICKENS, RN, CM
--- NOTE | 2023-01-16 13:08 | PCM.PN.REN ---
Subjective Subjective No new complaints today. Urine output is better. Urine is clear. Objective Data Objective Data Vital Signs: Vital Signs Temp Pulse Resp BP Pulse Ox O2 Del Method 97.8 F 64 16 129/54 H 94 Room Air 01/16/23 10:17 01/16/23 10:45 01/16/23 10:45 01/16/23 10:17 01/16/23 10:17 01/16/23 10:17 Oxygen Delivery Method Room Air Weight: 106.3 kg Body Mass Index (BMI) 37.8 Intake & Output: Intake and Output for Last 24 Hours 01/14/23 01/15/23 01/16/23 23:59 23:59 23:59 Intake Total 1536.66 / 1536.66 Balance 153.66 / 1536.66 Medical Nutrition Assessment Dietitian: Malnutrition Criteria Met Start: 01/16/23 10:19 Freq: Status: Active Protocol: Document 01/16/23 10:19 AG (Rec: 01/16/23 10:19 AG [id number]) Nutrition Malnutrition Evidence of Malnutrition Exists Yes Malnutrition (severe): Acute Illness/Injury Evidenced By Suboptimal Energy Intake ( Severe),Weight Loss (Severe) Clinical Problem Acute Disease or Injury Related Malnutrition Etiology severe, acute malnutrition related to inadequate energy intake Signs/Symptoms as evidenced by unintentional 8.6#/4% wt loss x 1 week; estimated PO intake meeting < 50% of estimated energy needs > 5 days Status Active Problem Recommendation Dietitian Recommendations/Changes continue regular diet as tolerated; recommend ensure clear 120mL 4x/day w/medpass give acute malnutrition but pt refusing ONS at this time. Lab / Micro Data Result Diagrams: 01/16/23 04:55 01/16/23 04:55 Labs: Laboratory Results - last 24 hr 01/15/23 14:18: Sodium 116 L*, Phosphorus 3.2, Magnesium 2.0 01/15/23 14:18: C-React Prot High Sens 0.89 01/15/23 15:20: COVID-19 (TINA) Not Detected 01/15/23 16:00: Urine Color Yellow, Urine Clarity Clear, Urine pH 6.5, Ur Specific [place] 1.010, Urine Protein Negative, Urine Glucose (UA) Normal, Urine Ketones 5 H, Urine Occult Blood Negative, Urine Nitrite Negative, Urine Bilirubin Negative, Urine Urobilinogen Normal, Ur Leukocyte Esterase Negative, Urine RBC 0 SEEN, Urine WBC 0 SEEN, Ur Squamous Epith Cells 0 SEEN, Urine Bacteria 0 SEEN, Urine Mucus 0 SEEN 01/15/23 16:00: Urine Osmolality 278, U Random Total Protein 8.3, Ur Random Sodium 60, Urine Creatinine 29.60, Protein/Creatinin Ratio 280 H, Urine Potassium 24.0, Urine Chloride 73 01/15/23 16:00: Urine Creatinine 30.80 01/15/23 18:07: Sodium 117 L* 01/15/23 18:07: Serum Osmolality 247 L 01/15/23 18:07: ESR 2 01/15/23 22:20: Sodium 117 L* 01/16/23 04:55: WBC 6.9, RBC 4.08 L, Hgb 11.7 L, Hct 33.1 L, MCV 81.1, MCH 28.7, MCHC 35.3, RDW Std Deviation 38.9, RDW Coeff of Kelsy 13.4, Plt Count 266, MPV 10.0, Immature Gran % (Auto) 0.400, Neut % (Auto) 54.1, Lymph % (Auto) 29.5, [place] % (Auto) 13.6 H, Eos % (Auto) 2.0, Baso % (Auto) 0.4, Absolute Neuts (auto) 3.7, Absolute Lymphs (auto) 2.04, Nucleated RBC % 0 01/16/23 04:55: Sodium 117 L*, Potassium 3.5, Chloride 82 L, Carbon Dioxide 24.0, Anion Gap 11, BUN 18, Creatinine 1.21 H, Estim Creat Clear Calc 38.76, Est GFR (MDRD) Af Amer 56 L, Est GFR (MDRD) Non-Af 46 L, BUN/Creatinine Ratio 14.9, Glucose 86, Calcium 8.8, TSH 1.72 01/16/23 04:55: Cortisol 22.30 Micro: Microbiology 01/15/23 15:20 Mucosa - Nasopharyngeal Respiratory Panel (PCR) - Final Rhinovirus 01/15/23 16:00 Urine, Clean Catch Streptococcus pneumoniae Antigen (M - Final 01/15/23 15:20 Interface Orders Group A Streptococcus Rapid Screen - Preliminary 01/15/23 11:45 Nasal Secretion SARS-CoV-2 & FLU Antigen (Rapid) - Final Physical Exam Narrative Alert awake oriented x 3 no obvious distress no pallor no icterus no JVD s1s2 no murmurs lungs clear abdomen soft no organomegaly no edema no cyanosis Assessment & Plan Assessment/Plan (1) Acute hyponatremia: PLAN: Reviewed records from [facility]. Last known sodium was 131 but that was almost 1 year ago. Came in with a sodium of 115. Poor appetite and oral intake for the last 2 weeks at least. Urine output was also low. Presumably hypovolemic hyponatremia. Urine osmolality and urine sodium are high but she was taking diuretics hence not reliable. Sodium is slightly better. Continue fluids 1 more day. TSH and cortisol are okay. PLAN: Plan History of CKD stage IIIa. Baseline creatinine is around 1.3-1.4. Stable.
--- NOTE | 2023-01-16 14:35 | PN.HOSP_ITS ---
Reason for Visit Reason for Visit: Diagnoses Hypo-osmolality and hyponatremia (01/15/23) Chronic kidney disease, stage 3b (01/15/23) Objective Data Objective Data Vital Signs: Vital Signs Temp Pulse Resp BP Pulse Ox O2 Del Method 97.8 F 64 16 129/54 H 94 Room Air 01/16/23 10:17 01/16/23 10:45 01/16/23 10:45 01/16/23 10:17 01/16/23 10:17 01/16/23 10:17 Oxygen Delivery Method Room Air Weight: 234 lb 5.622 oz Body Mass Index (BMI) 37.8 Intake & Output: Intake and Output for Last 24 Hours 01/14/23 01/15/23 01/16/23 23:59 23:59 23:59 Intake Total 1536.66 / 1536.66 Balance 1536.66 / 1536.66 Medical Nutrition Assessment Dietitian: Malnutrition Criteria Met Start: 01/16/23 10:19 Freq: Status: Active Protocol: Document 01/16/23 10:19 AG (Rec: 01/16/23 10:19 [id number]) Nutrition Malnutrition Evidence of Malnutrition Exists Yes Malnutrition (severe): Acute Illness/Injury Evidenced By Suboptimal Energy Intake ( Severe),Weight Loss (Severe) Clinical Problem Acute Disease or Injury Related Malnutrition Etiology severe, acute malnutrition related to inadequate energy intake Signs/Symptoms as evidenced by unintentional 8.6#/4% wt loss x 1 week; estimated PO intake meeting < 50% of estimated energy needs > 5 days Status Active Problem Recommendation Dietitian Recommendations/Changes continue regular diet as tolerated; recommend ensure clear 120mL 4x/day w/medpass give acute malnutrition but pt refusing ONS at this time. Lab / Micro Data Result Diagrams: 01/16/23 04:55 01/16/23 04:55 Labs: Laboratory Results - last 24 hr 01/15/23 14:18: Sodium 116 L*, Phosphorus 3.2, Magnesium 2.0 01/15/23 14:18: C-React Prot High Sens 0.89 01/15/23 15:20: COVID-19 ([facility]) Not Detected 01/15/23 16:00: Urine Color Yellow, Urine Clarity Clear, Urine pH 6.5, Ur Spe cific [place] 1.010, Urine Protein Negative, Urine Glucose (UA) Normal, Urine Ketones 5 H, Urine Occult Blood Negative, Urine Nitrite Negative, Urine Bilirubin Negative, Urine Urobilinogen Normal, Ur Leukocyte Esterase Negative, Urine RBC 0 SEEN, Urine WBC 0 SEEN, Ur Squamous Epith Cells 0 SEEN, Urine Bacteria 0 SEEN, Urine Mucus 0 SEEN 01/15/23 16:00: Urine Osmolality 278, U Random Total Protein 8.3, Ur Random Sodium 60, Urine Creatinine 29.60, Protein/Creatinin Ratio 280 H, Urine Potassium 24.0, Urine Chloride 73 01/15/23 16:00: Urine Creatinine 30.80 01/15/23 18:07: Sodium 117 L* 01/15/23 18:07: Serum Osmolality 247 L 01/15/23 18:07: ESR 2 01/15/23 22:20: Sodium 117 L* 01/16/23 04:55: WBC 6.9, RBC 4.08 L, Hgb 11.7 L, Hct 33.1 L, MCV 81.1, MCH 28.7, MCHC 35.3, RDW Std Deviation 38.9, RDW Coeff of Kelsy 13.4, Plt Count 266, MPV 10.0, Immature Gran % (Auto) 0.400, Neut % (Auto) 54.1, Lymph % (Auto) 29.5, Gilliam % (Auto) 13.6 H, Eos % (Auto) 2.0, Baso % (Auto) 0.4, Absolute Neuts (auto) 3.7, Absolute Lymphs (auto) 2.04, Nucleated RBC % 0 01/16/23 04:55: Sodium 117 L*, Potassium 3.5, Chloride 82 L, Carbon Dioxide 24.0, Anion Gap 11, BUN 18, Creatinine 1.21 H, Estim Creat Clear Calc 38.76, Est GFR (MDRD) Af Amer 56 L, Est GFR (MDRD) Non-Af 46 L, BUN/Creatinine Ratio 14.9, Glucose 86, Calcium 8.8, TSH 1.72 01/16/23 04:55: Cortisol 22.30 Micro: Microbiology 01/15/23 15:20 Mucosa - Nasopharyngeal Respiratory Panel (PCR) - Final Rhinovirus 01/15/23 16:00 Urine, Clean Catch Streptococcus pneumoniae Antigen (M - Final 01/15/23 15:20 Interface Orders Group A Streptococcus Rapid Screen - Preliminary 01/15/23 11:45 Nasal Secretion SARS-CoV-2 & FLU Antigen (Rapid) - Final Physical Exam Narrative Seen and examined. Patient stated her urine output is increased and color clear. It was dark and concentrated before. Overall she is feeling better with more energy and well- hydrated. Physical exam: General: Alert, Oriented x3, Cooperative HEENT: Atraumatic, PERRLA, EOMI, Normocephalic Oral: Oral mucosa dry. No Gingival or Mucosal Lesions/ Ulcerations. No posterior pharyngeal wall infiltrate or exudate seen. Neck: Supple, No JVD, Negative Carotid Bruits Lungs: Air entry diminished in bilateral lung bases. No crepitation/rhonchi Cardiovascular: Regular rate, Regular Rhythm, Normal S1, Normal S2, No murmurs Abdomen: Bowel Sounds Present, Soft, Non Tender, Non-Distended : Good urine output. Colorless. No hematuria. No renal angle tenderness. No suprapubic tenderness. Extremities: No edema, Capillary Refill Less than 3 Seconds Skin: No rashes, No breakdown Musculoskeletal: No Tenderness to Palpation of Joints or Extremities Neurological: Cranial nerves II-XII grossly intact, DTR 2+/4 and Symmetrical, Neuro grossly intact Psych/Mental Status: Flat affect. Assessment & Plan Assessment/Plan (1) Chronic hyponatremia: (2) Stage 3b chronic kidney disease (CKD): PLAN: Plan This is a 72-year-old female is being admitted for viral-like symptoms for 1 week along with severe hyponatremia. 1. Severe hypotonic hypovolemic hyponatremia probably subacute/chronic: Patient symptoms are about 7 to 8 days therefore hyponatremia is subacute/chronic. Patient does not have indication for hypertonic saline like seizure altered mental status or change in behavior or acute hyponatremia therefore agree with normal saline. Normal saline rate decreased to 75 mill per hour. Serum sodium every 4 hours first now for first 24 hours. Plasterer Foreman consulted. At the most likely cause for hyponatremia might be steroid methylprednisolone for 1 week leading to SIADH. UA, urine electrolytes, urine protein creatinine ratio, serum and urine osmolality, TSH and serum cortisol ordered. 01/16: Serum sodium gradually increased 117. Overall analysis of serum serum and urine osmolality, urine electrolytes shows patient was dehydrated over 7 to 8 days, severe hypotonic hypovolemic hyponatremia. Patient seen by satellite television installer. Continue IV fluid at least for 1 more day and then reevaluate. 2. KADY on CKD stage IIIb: Patient baseline creatinine runs around 1.0-1.2. She has a history of CKD stage IIIb for many years after she had ceftaroline for osteomyelitis of her foot. Patient admitted with creatinine 1.51. Exact etiology of KADY unclear possible viral or Streptococcus. Continue IV fluid. Strict intake and output. 01/16: Creatinine improved to 1.2. 3. Flulike viral-like symptoms: Patient had about 8 days course of Keflex, methylprednisolone and then started on doxycycline and prednisone probably cefdinir. Hold off any further antibiotic. ESR and CRP ordered. Respiratory panel and COVID-19 PCR ordered. 01/16: ESR and CRP normal range. Rapid strep throat screen preliminary is negative. Respiratory panel positive for rhinovirus. Patient is in recovery for age of rhinovirus. Rapid strep throat screen preliminary is negative. Respiratory panel positive for rhinovirus. 4. Hypertension: Hold HCTZ and spironolactone as it might be because of hyponatremia. Continue atenolol. 5. Other comorbidities include rheumatoid arthritis, morbid obesity, GERD: BMI of 38.8 kg/m? consistent with morbid obesity. Patient on infliximab hold it. Continue PPI. VTE prophylaxis, high risk: Enoxaparin 40 mg subcu daily. Living will/advanced directive/end of life care: Patient does have living will or advanced directive. After discussion of benefits/risks procedures involved with full code, DNR CC arrest and DNR CC, the patient and her opted for full code. Patient does want artificial life support including intubation, tube feed, ventilator and/chest compression, central venous catheter, vasopressor and DC shock if needed but does not want to prolong her life if causes are terminal or irreversible Charges/Coding Visit Charges Inpatient E&M: 85757 Subs Hosp L2
[2023-01-16] MEDS: Potassium Chloride Oral Tablet 20 MEQ 40 MEQ PO (16:00)
[2023-01-16] MEDS: Acetaminophen 325 MG Tablet 650 MG PO (18:58)
[2023-01-17] VITALS (7 sets, daily range): BP systolic 129–133; BP diastolic 49–63; PULSE 58–61; RESP 18; TEMP 36.6–36.8; O2SAT 94–96; BMI 38.0
--- NOTE | 2023-01-17 01:34 | CPS ---
Pt wears bipap at home but does not want bipap here. O2 applied at 2L for HS only.
[2023-01-17] MEDS: Ipratropium/Albuterol Sulfate 3 ML AMPUL.NEB INHALATION (03:31)
[2023-01-17] MEDS: 0.9% Normal Saline 1,000 ML 100 ML IV ×2 (04:55→14:32)
[2023-01-17] MEDS: guaiFENesin/Codeine 5 ML UDC PO ×2 (04:55→11:58)
[2023-01-17] MEDS: Pregabalin 75 MG Capsule 150 MG PO (06:09)
[2023-01-17 08:15] LABS: Anion Gap 7 (5-15); BUN 11 mg/dL (7-18); BUN/Creat Ratio 9.5 RATIO (10-20); Calcium,Total 8.7 mg/dL (8.5-10.1); Chloride 95 mmol/L (98-107); Creatinine, Serum 1.16 mg/dL (0.55-1.02); EST Glomerular Filtration Rate 49 mL/min (>60); Est Glom Filt Rate - Afr Amer 59 mL/min (>60); Estimated Creatinine Clearance 40.44 ml/min; Glucose 87 mg/dL (74-106); Potassium 3.8 mmol/L (3.5-5.1); Sodium Level 126 mmol/L (136-145)
[2023-01-17] MEDS: Aspirin 81 MG TAB.CHEW PO (08:37)
[2023-01-17] MEDS: Potassium Chloride Oral Tablet 20 MEQ 40 MEQ PO (08:37)
[2023-01-17] MEDS: Senna/Docusate Sodium 1 Tablet 2 TABLET PO (08:38)
[2023-01-17] MEDS: Hydroxychloroquine 200 MG Tablet 300 MG PO (08:38)
[2023-01-17] MEDS: Atenolol 25 MG Tablet PO (08:38)
[2023-01-17] MEDS: Pantoprazole Sodium 40 MG Tablet PO (08:38)
[2023-01-17] MEDS: Enoxaparin 30 MG/0.3 ML Syringe SC (08:38)
[2023-01-17] MEDS: Fluticasone 0.05% 1 SPRAY NASAL.SRY 2 SPRAY NASAL (08:39)
[2023-01-17] MEDS: Psyllium 1 PACKET PO (08:48)
--- NOTE | 2023-01-17 10:34 | DCINST_ITS ---
Discharge Instructions Diet Discharge Diet: No restrictions Activity Discharge Activity: Return to Normal Activity Weight Bearing Status: Weight bearing as tolerated Dressing / Incision Call your doctor if you observe: Fever of 101 or Higher, Coldness, Increased Pain, Numbness or Tingling, Change in Color, Inability to urinate, Inability to have a bowel movement, Using more than 1 pad per hour, Shortness of breath, Dizziness, Fainting spells, Swelling in the ankles, Chest pain, Prolonged hiccupping, Increased palpitations (irregular heartbeat) and Calf discomfort Follow Up Care When: IN 2 WEEKS Test Results: Test results from this visit will be discussed in further detail at your follow- up appointment, if applicable. Discharge Plan Admission Admit Date/Time: 01/15/23 13:57 Primary Reason for Your Visit: Rhinovirus bronchitis and KADY on CKD, prerenal etiology Attending Provider: Fernando Jj Primary Care Provider: Rema Vila Consulting Providers: Nestor Martinez Discharge Orders/Prescriptions Prescriptions: Continued potassium chloride 10 MEQ capsule, extended release 10 meq PO DAILY atenolol 25 MG tablet 25 mg PO DAILY pantoprazole 20 MG tablet 40 mg PO BID aspirin 81 MG tablet,chewable 81 mg PO DAILY pregabalin [Lyrica] 150 MG capsule 150 mg PO BID Label Comments: Rx Instructions: Pt takes at 0700, 1900 infliximab 100 mg Recon Soln 100 mg IV codeine-guaifenesin 10-100 mg/5 mL Liquid 5 - 10 ml PO Q4H PRN (Reason: Cough) hydroxychloroquine 200 mg Tablet 300 mg PO DAILY Rx Instructions: 1.5 TAB DAILY fluticasone propionate [Flonase Allergy Relief] 50 mcg/actuation Powell,Suspension 2 spray INTRANASAL DAILY Rx Instructions: administer into each nostril cholecalciferol (vitamin D3) 25 mcg (1,000 unit) Capsule 25 mcg PO DAILY cyanocobalamin (vitamin B-12) 1,000 mcg/mL Syringe 1,000 mcg Rx Instructions: biweekly Mucinex 1,200 mg Tablet Extended Release 12hr 1,200 mg PO BID albuterol sulfate 90 mcg/actuation HFA aerosol inhaler 2 puff INHALATION Q4H Label Comments: INHALE 2 PUFFS INSTRUCTED EVERY 4 HOURS NEEDED FOR WHEEZING/SHORTNESS OF BREATH. prednisone 10 mg tablet 40 mg PO DAILY Rx Instructions: Tapered dosing Held spironolactone 25 MG tablet 25 mg PO DAILY Hold Instructions: Hold it and follow-up with repeat BMP in 1 week with fiction and nonfiction writer prose/PCP hydrochlorothiazide 25 MG tablet 25 mg PO DAILY Hold Instructions: Hold it and follow-up with repeat BMP in 1 week with fiction and nonfiction writer prose/PCP metformin 500 mg Tablet 500 mg PO BID Hold Instructions: Hold it and follow-up with repeat BMP in 1 week with fiction and nonfiction writer prose/PCP Rx Instructions: 2 TABS BID Discontinued doxycycline hyclate 100 mg Tablet 100 mg PO BID Referrals / Follow Up: Nestor Martinez MD [Med Staff - Consulting] - Within 1 Week (With repeat lab of BMP) Rema Vila MD [Primary Care Provider] - Disposition Disposition (needs filled in before D/C Order can be placed): Home, Self Care
[2023-01-17 12:24] LABS: Sodium Level 127 mmol/L (136-145)
--- NOTE | 2023-01-17 14:29 | PN.HOSP_ITS ---
Reason for Visit Reason for Visit: Diagnoses Hypo-osmolality and hyponatremia (01/15/23) Chronic kidney disease, stage 3b (01/15/23) Objective Data Objective Data Vital Signs: Vital Signs Temp Pulse Resp BP Pulse Ox O2 Del Method O2 Flow Rate 97.9 F 61 18 133/63 H 95 Room Air 2 01/17/23 08:35 01/17/23 08:35 01/17/23 08:35 01/17/23 08:35 01/17/23 08:35 01/17/23 08:35 01/17/23 07:55 Oxygen Flow Rate (L/min) 2 Oxygen Delivery Method Room Air Weight: 235 lb 10.786 oz Body Mass Index (BMI) 38.0 Intake & Output: Intake and Output for Last 24 Hours 01/15/23 01/16/23 01/17/23 23:59 23:59 23:59 Intake Total 2499.99 / 2499.99 1011.67 / 1011.67 Balance 2499.99 / 2499.99 1011.67 / 1011.67 Medical Nutrition Assessment Dietitian: Malnutrition Criteria Met Start: 01/16/23 10:19 Freq: Status: Active Protocol: Document 01/16/23 10:19 AG (Rec: 01/16/23 10:19 AG [id number]) Nutrition Malnutrition Evidence of Malnutrition Exists Yes Malnutrition (severe): Acute Illness/Injury Evidenced By Suboptimal Energy Intake ( Severe),Weight Loss (Severe) Clinical Problem Acute Disease or Injury Related Malnutrition Etiology severe, acute malnutrition related to inadequate energy intake Signs/Symptoms as evidenced by unintentional 8.6#/4% wt loss x 1 week; estimated PO intake meeting < 50% of estimated energy needs > 5 days Status Active Problem Recommendation Dietitian Recommendations/Changes continue regular diet as tolerated; recommend ensure clear 120mL 4x/day w/medpass give acute malnutrition but pt refusing ONS at this time. Lab / Micro Data Result Diagrams: 01/16/23 04:55 01/17/23 12:15 Labs: Laboratory Results - last 24 hr 01/17/23 06:36: Sodium 126 L, Potassium 3.8, Chloride 95 L, Carbon Dioxide 24.0, Anion Gap 7, BUN 11, Creatinine 1.16 H, Estim Creat Clear Calc 40.44, Est GFR (MDRD) Af Amer 59 L, Est GFR (MDRD) Non-Af 49 L, BUN/Creatinine Ratio 9.5 L, Glucose 87, Calcium 8.7 01/17/23 12:15: Sodium 127 L Micro: Microbiology 01/15/23 15:20 Interface Orders Group A Streptococcus Rapid Screen - Final 01/15/23 15:20 Mucosa - Nasopharyngeal Respiratory Panel (PCR) - Final Rhinovirus 01/15/23 16:00 Urine, Clean Catch Streptococcus pneumoniae Antigen (M - Final 01/15/23 11:45 Nasal Secretion SARS-CoV-2 & FLU Antigen (Rapid) - Final Physical Exam Narrative Seen and examined. Patient stated her urine output is increased and color clear. It was dark and concentrated before. Overall she is feeling better with more energy and well- hydrated. Physical exam: General: Alert, Oriented x3, Cooperative HEENT: Atraumatic, PERRLA, EOMI, Normocephalic Oral: Oral mucosa moist No Gingival or Mucosal Lesions/ Ulcerations. No posterior pharyngeal wall infiltrate or exudate seen. Neck: Supple, No JVD, Negative Carotid Bruits Lungs: Air entry diminished in bilateral lung bases. No crepitation/rhonchi Cardiovascular: Regular rate, Regular Rhythm, Normal S1, Normal S2, No murmurs Abdomen: Bowel Sounds Present, Soft, Non Tender, Non-Distended : Good urine output. Colorless. No hematuria. No renal angle tenderness. No suprapubic tenderness. Extremities: No edema, Capillary Refill Less than 3 Seconds Skin: No rashes, No breakdown Musculoskeletal: No Tenderness to Palpation of Joints or Extremities Neurological: Cranial nerves II-XII grossly intact, DTR 2+/4 and Symmetrical, Neuro grossly intact Psych/Mental Status: Flat affect. Assessment & Plan Assessment/Plan (1) Chronic hyponatremia: (2) Stage 3b chronic kidney disease (CKD): PLAN: Plan This is a 72-year-old female is being admitted for viral-like symptoms for 1 week along with severe hyponatremia. 1. Severe hypotonic hypovolemic hyponatremia probably subacute/chronic: Patient symptoms are about 7 to 8 days therefore hyponatremia is subacute/chronic. Patient does not have indication for hypertonic saline like seizure altered mental status or change in behavior or acute hyponatremia therefore agree with normal saline. Normal saline rate decreased to 75 mill per hour. Serum sodium every 4 hours first now for first 24 hours. Access Liaison consulted. At the most likely cause for hyponatremia might be steroid methylprednisolone for 1 week leading to SIADH. UA, urine electrolytes, urine protein creatinine ratio, serum and urine osmolality, TSH and serum cortisol ordered. 01/16: Serum sodium gradually increased 117. Overall analysis of serum serum and urine osmolality, urine electrolytes shows patient was dehydrated over 7 to 8 days, severe hypotonic hypovolemic hyponatremia. Patient seen by clinical research nurse coordinator. Continue IV fluid at least for 1 more day and then reevaluate. 01/17: Serum sodium was 126 in the morning. I told the patient I will to recheck the labs in afternoon and if it is stable then I will discharge her. 2. KADY on CKD stage IIIb: Patient baseline creatinine runs around 1.0-1.2. She has a history of CKD stage IIIb for many years after she had ceftaroline for osteomyelitis of her foot. Patient admitted with creatinine 1.51. Exact etiology of KADY unclear possible viral or Streptococcus. Continue IV fluid. Strict intake and output. 01/16: Creatinine improved to 1.2. 01/17: Creatinine 1.16. Potassium 3.8 normal. Advised to continue fluid intake and IV fluid normal saline. 3. Flulike viral-like symptoms: Patient had about 8 days course of Keflex, methylprednisolone and then started on doxycycline and prednisone probably cefdinir. Hold off any further antibiotic. ESR and CRP ordered. Respiratory panel and COVID-19 PCR ordered. 01/16: ESR and CRP normal range. Rapid strep throat screen preliminary is negative. Respiratory panel positive for rhinovirus. Patient is in recovery for age of rhinovirus. Rapid strep throat screen preliminary is negative. Respiratory panel positive for rhinovirus. 4. Hypertension: Hold HCTZ and spironolactone as it might be because of hyponatremia. Continue atenolol. 5. Other comorbidities include rheumatoid arthritis, morbid obesity, GERD: BMI of 38.8 kg/m? consistent with morbid obesity. Patient on infliximab hold it. Continue PPI. VTE prophylaxis, high risk: Enoxaparin 40 mg subcu daily. Living will/advanced directive/end of life care: Patient does have living will or advanced directive. After discussion of benefits/risks procedures involved with full code, DNR CC arrest and DNR CC, the patient and her opted for full code. Patient does want artificial life support including intubation, tube feed, ventilator and/chest compression, central venous catheter, vasopressor and DC shock if needed but does not want to prolong her life if causes are terminal or irreversible Microbiology Past 72 Hours 01/15/23 15:20 Interface Orders Group A Streptococcus Rapid Screen - Final 01/15/23 15:20 Mucosa - Nasopharyngeal Respiratory Panel (PCR) - Final Rhinovirus 01/15/23 16:00 Urine, Clean Catch Streptococcus pneumoniae Antigen (M - Final 01/15/23 11:45 Nasal Secretion SARS-CoV-2 & FLU Antigen (Rapid) - Final Laboratory Results 01/17/23 06:36: Sodium 126 L, Potassium 3.8, Chloride 95 L, Carbon Dioxide 24.0, Anion Gap 7, BUN 11, Creatinine 1.16 H, Estim Creat Clear Calc 40.44, Est GFR (MDRD) Af Amer 59 L, Est GFR (MDRD) Non-Af 49 L, BUN/Creatinine Ratio 9.5 L, Glucose 87, Calcium 8.7 01/17/23 12:15: Sodium 127 L
--- NOTE | 2023-01-17 14:37 | PCM.DC.SUM ---
Providers Date of Admission: 01/15/23 Primary Care Physician: Dr. Rema Vila MD Consultations 01/15/23 14:30 Consult: Nephrology Routine Consulting Provider: Nestor Martinez Reason for Consult: severe hyponatremia, CKD stage 3b. EMERGENT Consult: No MD Notified: Yes Date Notified: 01/15/23 Time Notified: 14:04 Method of Notification: Text Reason For Visit: SEVERE HYPONATREMIA / VIRAL LIKE SYNDROME Diagnosis Discharge Diagnosis (1) Chronic hyponatremia: Status: Chronic Code(s): E87.1 - Hypo-osmolality and hyponatremia (2) Stage 3b chronic kidney disease (CKD): Status: Acute Code(s): N18.32 - Chronic kidney disease, stage 3b Plan This is a 72-year-old female is being admitted for viral-like symptoms for 1 week along with severe hyponatremia. 1. Severe hypotonic hypovolemic hyponatremia probably subacute/chronic: Patient symptoms are about 7 to 8 days therefore hyponatremia is subacute/chronic. Patient does not have indication for hypertonic saline like seizure altered mental status or change in behavior or acute hyponatremia therefore agree with normal saline. Normal saline rate decreased to 75 mill per hour. Serum sodium every 4 hours first now for first 24 hours. Porcelain Build[employer] Assistant consulted. At the most likely cause for hyponatremia might be steroid methylprednisolone for 1 week leading to SIADH. UA, urine electrolytes, urine protein creatinine ratio, serum and urine osmolality, TSH and serum cortisol ordered. 01/16: Serum sodium gradually increased 117. Overall analysis of serum serum and urine osmolality, urine electrolytes shows patient was dehydrated over 7 to 8 days, severe hypotonic hypovolemic hyponatremia. Patient seen by pouncing lathe operator. Continue IV fluid at least for 1 more day and then reevaluate. 01/17: Serum sodium was 126 in the morning. Repeat sodium is 127. Discussed with the pouncing lathe operator. He is okay with patient being discharged and follow-up lab in 1 week. Advised to hold HCTZ, spironolactone and metformin for 1 week and repeat BMP before resumption. 2. KADY on CKD stage IIIb: Patient baseline creatinine runs around 1.0-1.2. She has a history of CKD stage IIIb for many years after she had ceftaroline for osteomyelitis of her foot. Patient admitted with creatinine 1.51. Exact etiology of KADY unclear possible viral or Streptococcus. Continue IV fluid. Strict intake and output. 01/16: Creatinine improved to 1.2. 01/17: Creatinine 1.16. Potassium 3.8 normal. Advised to continue fluid intake 3. Flulike viral-like symptoms: Patient had about 8 days course of Keflex, methylprednisolone and then started on doxycycline and prednisone probably cefdinir. Hold off any further antibiotic. ESR and CRP ordered. Respiratory panel and COVID-19 PCR ordered. 01/16: ESR and CRP normal range. Rapid strep throat screen preliminary is negative. Respiratory panel positive for rhinovirus. Patient is in recovery for age of rhinovirus. Rapid strep throat screen preliminary is negative. Respiratory panel positive for rhinovirus. 4. Hypertension: Hold HCTZ and spironolactone as it might be because of hyponatremia. Continue atenolol. 5. Other comorbidities include rheumatoid arthritis, morbid obesity, GERD: BMI of 38.8 kg/m? consistent with morbid obesity. Patient on infliximab hold it. Continue PPI. VTE prophylaxis, high risk: Enoxaparin 40 mg subcu daily. Living will/advanced directive/end of life care: Patient does have living will or advanced directive. After discussion of benefits/risks procedures involved with full code, DNR CC arrest and DNR CC, the patient and her opted for full code. Patient does want artificial life support including intubation, tube feed, ventilator and/chest compression, central venous catheter, vasopressor and DC shock if needed but does not want to prolong her life if causes are terminal or irreversible Microbiology Past 72 Hours 01/15/23 15:20 Interface Orders Group A Streptococcus Rapid Screen - Final 01/15/23 15:20 Mucosa - Nasopharyngeal Respiratory Panel (PCR) - Final Rhinovirus 01/15/23 16:00 Urine, Clean Catch Streptococcus pneumoniae Antigen (M - Final 01/15/23 11:45 Nasal Secretion SARS-CoV-2 & FLU Antigen (Rapid) - Final Laboratory Results 01/17/23 06:36: Sodium 126 L, Potassium 3.8, Chloride 95 L, Carbon Dioxide 24.0, Anion Gap 7, BUN 11, Creatinine 1.16 H, Estim Creat Clear Calc 40.44, Est GFR (MDRD) Af Amer 59 L, Est GFR (MDRD) Non-Af 49 L, BUN/Creatinine Ratio 9.5 L, Glucose 87, Calcium 8.7 01/17/23 12:15: Sodium 127 L Medications at Discharge Home Medications aspirin 81 mg chewable tablet 81 mg PO DAILY heart 11/18/17 atenolol 25 mg tablet 25 mg PO DAILY blood pressure 11/18/17 hydrochlorothiazide 25 mg tablet 25 mg PO DAILY blood pressure 11/18/17 pantoprazole 20 mg tablet,delayed release 40 mg PO BID stomach 11/18/17 potassium chloride 10 mEq capsule,extended release 10 meq PO DAILY supplement 11/18/17 pregabalin 150 mg capsule (Lyrica) 150 mg PO BID neuropathy 11/18/17 spironolactone 25 mg tablet 25 mg PO DAILY water pill 11/18/17 albuterol sulfate 90 mcg/actuation aerosol inhaler 2 puff inhalation Q4H wheezing 01/15/23 cholecalciferol (vitamin D3) 25 mcg (1,000 unit) capsule 25 mcg PO DAILY supplement 01/15/23 codeine 10 mg-guaifenesin 100 mg/5 mL oral liquid 5 - 10 ml PO Q4H PRN Cough 01/15/23 cyanocobalamin (vitamin B-12) 1,000 mcg/mL injection syringe 1,000 mcg supplement 01/15/23 fluticasone propionate 50 mcg/actuation nasal spray,suspension (Flonase Allergy Relief) 2 spray intranasal DAILY allergies 01/15/23 guaifenesin 1,200 mg tablet, extended release 12 hr (Mucinex) 1,200 mg PO BID mucous 01/15/23 hydroxychloroquine 200 mg tablet 300 mg PO DAILY arthritis 01/15/23 infliximab 100 mg intravenous solution 100 mg IV Rheumatoid arthritis 01/15/23 metformin 500 mg tablet 500 mg PO BID diabetes 01/15/23 prednisone 10 mg tablet 40 mg PO DAILY steriod 01/15/23 Physical Exam Narrative Seen and examined. Patient stated her urine output is increased and color clear. She stated she has a lot of urine output. Overall she is feeling better with more energy and well-hydrated. Physical exam: General: Alert, Oriented x3, Cooperative HEENT: Atraumatic, PERRLA, EOMI, Normocephalic Oral: Oral mucosa moist No Gingival or Mucosal Lesions/ Ulcerations. No posterior pharyngeal wall infiltrate or exudate seen. Neck: Supple, No JVD, Negative Carotid Bruits Lungs: Air entry diminished in bilateral lung bases. No crepitation/rhonchi Cardiovascular: Regular rate, Regular Rhythm, Normal S1, Normal S2, No murmurs Abdomen: Bowel Sounds Present, Soft, Non Tender, Non-Distended : Good urine output. Colorless. No hematuria. No renal angle tenderness. No suprapubic tenderness. Extremities: No edema, Capillary Refill Less than 3 Seconds Skin: No rashes, No breakdown Musculoskeletal: No Tenderness to Palpation of Joints or Extremities Neurological: Cranial nerves II-XII grossly intact, DTR 2+/4 and Symmetrical, Neuro grossly intact Psych/Mental Status: Flat affect. Medical Records Data Medical Nutrition Assessment Dietitian: Malnutrition Criteria Met Start: 01/16/23 10:19 Freq: Status: Active Protocol: Document 01/16/23 10:19 AG (Rec: 01/16/23 10:19 [id number]) Nutrition Malnutrition Evidence of Malnutrition Exists Yes Malnutrition (severe): Acute Illness/Injury Evidenced By Suboptimal Energy Intake ( Severe),Weight Loss (Severe) Clinical Problem Acute Disease or Injury Related Malnutrition Etiology severe, acute malnutrition related to inadequate energy intake Signs/Symptoms as evidenced by unintentional 8.6#/4% wt loss x 1 week; estimated PO intake meeting < 50% of estimated energy needs > 5 days Status Active Problem Recommendation Dietitian Recommendations/Changes continue regular diet as tolerated; recommend ensure clear 120mL 4x/day w/medpass give acute malnutrition but pt refusing ONS at this time. Weight / BMI Weight Weight: 235 lb 10.786 oz Body Mass Index (BMI) 38.0 ABG / Lab / Microbiology Data Result Diagrams: 01/16/23 04:55 01/17/23 12:15 Laboratory: Laboratory Results - last 24 hr 01/17/23 06:36: Sodium 126 L, Potassium 3.8, Chloride 95 L, Carbon Dioxide 24.0, Anion Gap 7, BUN 11, Creatinine 1.16 H, Estim Creat Clear Calc 40.44, Est GFR (MDRD) Af Amer 59 L, Est GFR (MDRD) Non-Af 49 L, BUN/Creatinine Ratio 9.5 L, Glucose 87, Calcium 8.7 01/17/23 12:15: Sodium 127 L Microbiology: Microbiology 01/15/23 15:20 Interface Orders Group A Streptococcus Rapid Screen - Final 01/15/23 15:20 Mucosa - Nasopharyngeal Respiratory Panel (PCR) - Final Rhinovirus 01/15/23 16:00 Urine, Clean Catch Streptococcus pneumoniae Antigen (M - Final 01/15/23 11:45 Nasal Secretion SARS-CoV-2 & FLU Antigen (Rapid) - Final D/C Instructions Discharge Diet: No restrictions Weight Bearing Status: Weight bearing as tolerated Call your doctor if you observe: Fever of 101 or Higher, Coldness, Increased Pain, Numbness or Tingling, Change in Color, Inability to urinate, Inability to have a bowel movement, Using more than 1 pad per hour, Shortness of breath, Dizziness, Fainting spells, Swelling in the ankles, Chest pain, Prolonged hiccupping, Increased palpitations (irregular heartbeat) and Calf discomfort When: IN 2 WEEKS Meaningful Use Info Meaningful Use Diagnoses (Choose all that apply): None applicable Discharge Plan Admission Admit Date/Time: 01/15/23 13:57 Primary Reason for Your Visit: Rhinovirus bronchitis and KADY on CKD, prerenal etiology Attending Provider: Fernando Jj Primary Care Provider: Rema Vila Consulting Providers: Nestor Martinez Discharge Orders/Prescriptions Prescriptions: Continued potassium chloride 10 MEQ capsule, extended release 10 meq PO DAILY atenolol 25 MG tablet 25 mg PO DAILY pantoprazole 20 MG tablet 40 mg PO BID aspirin 81 MG tablet,chewable 81 mg PO DAILY pregabalin [Lyrica] 150 MG capsule 150 mg PO BID Label Comments: Rx Instructions: Pt takes at 0700, 1900 infliximab 100 mg Recon Soln 100 mg IV codeine-guaifenesin 10-100 mg/5 mL Liquid 5 - 10 ml PO Q4H PRN (Reason: Cough) hydroxychloroquine 200 mg Tablet 300 mg PO DAILY Rx Instructions: 1.5 TAB DAILY fluticasone propionate [Flonase Allergy Relief] 50 mcg/actuation Martin,Suspension 2 spray INTRANASAL DAILY Rx Instructions: administer into each nostril cholecalciferol (vitamin D3) 25 mcg (1,000 unit) Capsule 25 mcg PO DAILY cyanocobalamin (vitamin B-12) 1,000 mcg/mL Syringe 1,000 mcg Rx Instructions: biweekly Mucinex 1,200 mg Tablet Extended Release 12hr 1,200 mg PO BID albuterol sulfate 90 mcg/actuation HFA aerosol inhaler 2 puff INHALATION Q4H Label Comments: INHALE 2 PUFFS INSTRUCTED EVERY 4 HOURS NEEDED FOR WHEEZING/SHORTNESS OF BREATH. prednisone 10 mg tablet 40 mg PO DAILY Rx Instructions: Tapered dosing Held spironolactone 25 MG tablet 25 mg PO DAILY Hold Instructions: Hold it and follow-up with repeat BMP in 1 week with pouncing lathe operator/PCP hydrochlorothiazide 25 MG tablet 25 mg PO DAILY Hold Instructions: Hold it and follow-up with repeat BMP in 1 week with pouncing lathe operator/PCP metformin 500 mg Tablet 500 mg PO BID Hold Instructions: Hold it and follow-up with repeat BMP in 1 week with pouncing lathe operator/PCP Rx Instructions: 2 TABS BID Discontinued doxycycline hyclate 100 mg Tablet 100 mg PO BID Referrals / Follow Up: Nestor Martinez MD [Med Staff - Consulting] - Within 1 Week (With repeat lab of BMP) Rema Vila MD [Primary Care Provider] - Disposition Disposition (needs filled in before D/C Order can be placed): Home, Self Care Charges/Coding Visit Charges Inpatient E&M: 42257 Disch Hosp >30min
== END 2023-01-17 15:53 | disposition home or self-care (01) | DRG 641 ==
LOC: ED 13:35 → PCU 13:58
PROVIDERS: Nurse Practitioner; Admitting Provider Internal Medicine; Emergency Provider Emergency Medicine; PCP Internal Medicine; Visit Provider Internal Medicine
DX: E87.1 Hypo-osmolality and hyponatremia (principal); N17.9 Acute kidney failure, unspecified; E11.22 Type 2 diabetes mellitus with diabetic chronic kidney disease; N18.32 Chronic kidney disease, stage 3b; E66.01 Morbid (severe) obesity due to excess calories; M06.9 Rheumatoid arthritis, unspecified; E86.0 Dehydration; I12.9 Hypertensive chronic kidney disease with stage 1 through stage 4 chronic kidney disease, or unspecified chronic kidney disease; K21.9 Gastro-esophageal reflux disease without esophagitis; Z66 Do not resuscitate; Z51.5 Encounter for palliative care; Z79.82 Long term (current) use of aspirin; Z79.52 Long term (current) use of systemic steroids; Z79.899 Other long term (current) drug therapy; Z79.84 Long term (current) use of oral hypoglycemic drugs; Z68.38 Body mass index [BMI] 38.0-38.9, adult; B97.89 Other viral agents as the cause of diseases classified elsewhere
CPT/HCPCS: 36415; 71046; 80048; 81001; 82436; 82533; 82570; 83735; 83880; 83930; 83935; 84100; 84133; 84156; 84295; 84300; 84443; 85025; 85652; 86141; 87428; 87449; 87633; 87635; 87880; 93005; 94640; 94668; 97162; 97165; 97802; 99285; J7030; A4216; U0003; U0005